=== PATIENT | male | born 1940 | race Caucasian/White ===

== ENCOUNTER → 2017-09-11 | Outpatient (CLI) | payer OTHER ==
[~2017-09-11] MED LIST: ASPIRIN; GARLIC; IMODIUM; MULTIVITAMIN; SIMVASTATIN; SINGULAIR; VERAPAMIL; ZANTAC
== END | disposition home or self-care (01) ==
LOC: RAD 08:27
DX: K44.9 Diaphragmatic hernia without obstruction or gangrene (principal); K22.2 Esophageal obstruction; K22.8 Other specified diseases of esophagus
CPT/HCPCS: 74220